=== PATIENT | female | born 1975 | race Caucasian/White ===

== ENCOUNTER 2016-10-03 11:46 | Emergency (ER) | payer OTHER ==
[2016-10-03] MEDS ORDERED: KETOROLAC 60 MG/2 ML VIAL IM ONE (12:40)
== END 2016-10-03 13:33 | disposition home or self-care (01) ==
LOC: ER 11:46
DX: S83.92XA Sprain of unspecified site of left knee, initial encounter (principal); X50.0XXA Overexertion from strenuous movement or load, initial encounter; X50.9XXA Other and unspecified overexertion or strenuous movements or postures, initial encounter; Y93.01 Activity, walking, marching and hiking; Y92.009 Unspecified place in unspecified non-institutional (private) residence as the place of occurrence of the external cause
CPT/HCPCS: 96372